=== PATIENT | female | born 1980 | race Hispanic/Latino ===

== ENCOUNTER 2021-12-06 07:24 | Inpatient (IN) | payer BC ==
[2021-12-04 09:07] LABS: BASOPHILS % 0.5 % (0.0-1.0); EOSINOPHILS # (AUTO) 0.1 (0.0-0.4); EOSINOPHILS % 0.9 % (0.0-6.0); HEMATOCRIT 37.2 % (34.2-44.1); HEMOGLOBIN 11.8 g/dL (12.0-16.0); LYMPHOCYTES % 37.8 % (18.0-39.1); MEAN CORPUSCULAR HEMOGLOBIN 28.2 pg (28-32); MEAN CORPUSCULAR HGB CONC 31.7 g/dL (31-35); MONOCYTES # (AUTO) 0.4 (0.2-0.8); MONOCYTES % 5.2 % (4.4-11.3); NEUTROPHILS # (AUTO) 4.4 (2.1-6.9); NEUTROPHILS % 55.4 % (38.7-80.0); PLATELET COUNT 368 x10e3/uL (140-360); RED BLOOD COUNT 4.18 x10e6/uL (3.6-5.1); RED CELL DISTRIBUTION WIDTH 13.8 % (11.7-14.4)
[2021-12-04 09:42] LABS: CALCIUM 8.7 mg/dL (8.4-10.2); CREATININE, SERUM 0.62 mg/dL (0.57-1.11)
[~2021-12-06] VITALS: Ht 167.6 cm; Wt 99.8 kg
[~2021-12-06 07:24] MED LIST: METFORMIN HCL850 MG PO; PAIN MEDICATION; ZINC
[2021-12-06] MEDS ORDERED: MUPIROCIN 2% OINT 22 GM TUBE ONE (08:26)
[2021-12-06 09:04] LABS: ALBUMIN 3.4 g/dL (3.5-5.0); ALBUMIN/GLOBULIN RATIO 0.9 (0.8-2.0); CALCIUM 8.1 mg/dL (8.4-10.2); CREATININE, SERUM 0.64 mg/dL (0.57-1.11)
[2021-12-06] MEDS ORDERED: ACETAMINOPHEN 1000 MG/100 ML 100 ML IV ONE (11:10)
[2021-12-06] MEDS ORDERED: HYDROMORPHONE 1MG/1ML INJ ONE (11:10)
[2021-12-06] MEDS ORDERED: Vancomycin IV 1 GM VIAL ONE (12:42)
[2021-12-06] MEDS ORDERED: MIDAZOLAM HCL 2 MG/2 ML VIAL ONE (13:03)
[2021-12-06] MEDS ORDERED: FENTANYL CITRATE/PF 100MCG/2 ML INJ ONE ×2 (13:03→15:19)
[2021-12-06] MEDS ORDERED: NEOSTIGMINE 1 MG/ML 10ML VIAL ONE (13:56)
[2021-12-06] MEDS ORDERED: GLYCOPYRROLATE INJ 0.2 MG/ML VIAL ONE (13:56)
[2021-12-06] MEDS ORDERED: SEVOFLURANE INHAL SOLN 250 ML PEN BTL ONE (13:56)
[2021-12-06] MEDS ORDERED: POVIDONE IODINE 0.05% 0.05 % ML PO ONE (13:56)
[2021-12-06] MEDS ORDERED: ONDANSETRON HCL INJ 2MG/ML 2ML 2 MG/ML VIAL ONE (13:56)
[2021-12-06] MEDS ORDERED: PROPOFOL IV EMULSION 10 MG/ML 20 ML VIAL ONE (13:56)
[2021-12-06] MEDS ORDERED: DEXAMETHASONE SOD PHOS INJ 4 MG/ML SDV ONE (13:56)
[2021-12-06] MEDS ORDERED: ROCURONIUM BROMIDE 10 MG/ML 5ML VIAL IV ONE (13:56)
[2021-12-06 16:00] VITALS: BP 117/80
[2021-12-06 16:07] VITALS: BP 117/80
[2021-12-06] MEDS: SODIUM CHLORIDE 0.9% 1000ML 1,000 ML IV SCH (16:15)
[2021-12-06] MEDS: HYDROMORPHONE 1MG/1ML INJ IV PRN (18:10)
[2021-12-06 20:06] VITALS: BP 117/83
[2021-12-07] VITALS (7 sets, daily range): BP systolic 101–118; BP diastolic 60–67
[2021-12-07] MEDS: ONDANSETRON HCL INJ 2MG/ML 2ML 2 MG/ML VIAL IV PRN ×2 (00:37→03:41)
[2021-12-07] MEDS: HYDROMORPHONE 1MG/1ML INJ IV PRN ×4 (00:37→16:26)
[2021-12-07] MEDS: SODIUM CHLORIDE 0.9% 1000ML 1,000 ML IV SCH ×3 (02:15→22:31)
[2021-12-07 05:01] LABS: BASOPHILS % 0.3 % (0.0-1.0); EOSINOPHILS % 0.2 % (0.0-6.0); HEMATOCRIT 32.5 % (34.2-44.1); HEMOGLOBIN 10.3 g/dL (12.0-16.0); LYMPHOCYTES # (AUTO) 2.9 (1.0-3.2); LYMPHOCYTES % 27.2 % (18.0-39.1); MEAN CORPUSCULAR HGB CONC 31.7 g/dL (31-35); MEAN CORPUSCULAR VOLUME 88.3 fL (81-99); MONOCYTES # (AUTO) 0.8 (0.2-0.8); MONOCYTES % 7.2 % (4.4-11.3); NEUTROPHILS % 64.5 % (38.7-80.0); PLATELET COUNT 340 x10e3/uL (140-360); RED BLOOD COUNT 3.68 x10e6/uL (3.6-5.1)
[2021-12-07 05:19] LABS: ANION GAP 12.6 mmol/L (8-16); CALCIUM 7.6 mg/dL (8.4-10.2); CREATININE, SERUM 0.54 mg/dL (0.57-1.11); POTASSIUM 3.6 mmol/L (3.5-5.1)
[2021-12-07] MEDS: METFORMIN HCL 500 MG TAB PO SCH (09:48)
[2021-12-07] MEDS: HYDROCODONE/APAP 7.5MG-325MG 1 EA TAB PO PRN ×2 (09:48→21:50)
[2021-12-08] VITALS: BP 113/56
[2021-12-08 04:00] VITALS: BP 115/68
[2021-12-08] MEDS: HYDROCODONE/APAP 7.5MG-325MG 1 EA TAB PO PRN (05:52)
[2021-12-08 07:55] VITALS: BP 91/51
[2021-12-08 07:58] VITALS: BP 91/51
[2021-12-08] MEDS: METFORMIN HCL 500 MG TAB PO SCH (09:06)
[2021-12-08] MEDS: SODIUM CHLORIDE 0.9% 1000ML 1,000 ML IV SCH (09:06)
[2021-12-08 11:09] VITALS: BP 106/61
== END 2021-12-08 15:05 | disposition home or self-care (01) | DRG 583 ==
LOC: OR 07:24 → OBSVTOIN 12:42 → PACU V 12:42 → INTOOBSV 12:42 → MED/SURG 15:34
PROVIDERS: ADMIT Surgery; ATTEND Surgery
PROC: 0HHV0NZ Insertion of Tissue Expander into Bilateral Breast, Open Approach (ICD-10-PCS; 2021-12-06)
PROC: 0HTV0ZZ Resection of Bilateral Breast, Open Approach (ICD-10-PCS; principal; 2021-12-06 09:09)
PROC: 0HRV0JZ Replacement of Bilateral Breast with Synthetic Substitute, Open Approach (ICD-10-PCS; 2021-12-06 09:09)
DX: D05.12 Intraductal carcinoma in situ of left breast (principal); Z85.3 Personal history of malignant neoplasm of breast; Z90.13 Acquired absence of bilateral breasts and nipples; E11.9 Type 2 diabetes mellitus without complications; Z79.84 Long term (current) use of oral hypoglycemic drugs; Z20.822 Contact with and (suspected) exposure to COVID-19
CPT/HCPCS: 36415; 80048; 80053; 81025; 82948; 85025; 88307; 93005; C1713; J0690; J0696; J1100; J1170; J2250; J2405; J2710; J3010; J3370; J7030